=== PATIENT | male | born 1930 | race Caucasian/White ===

== ENCOUNTER 2018-04-02 18:03 | Inpatient (IN) | payer MEDICARE, OTHER ==
[2018-04-02 19:07] VITALS: BMI 26.1
[2018-04-02] MEDS: Enoxaparin Sodium 80 MG/0.8 ML SYRINGE SC SCH (20:29)
[2018-04-02] MEDS: Metoprolol Tartrate 25 MG TAB PO SCH (20:29)
[2018-04-02] MEDS: Tamsulosin HCl 0.4 MG CAP PO SCH (20:30)
[2018-04-02] MEDS: HYDROcodone/Acetaminophen 10/325 mg Tablet PO PRN (20:30)
--- NOTE | 2018-04-02 21:30 | RAD ---
AP VIEW CHEST: 04/02/18 HISTORY: COPD, congestive heart failure. AP view chest is obtained on 04/02/18. Comparison made to previous exam from 10/21/16. AP view chest demonstrates cardiomegaly noted. Pulmonary vascular congestion seen. Sternotomy wires noted. There are surgical robert in the right mid lung. There is blunting of the costophrenic angles bilaterally, compatible with pleural scarring. Radiographic appearance of the chest is stable and unchanged. No acute abnormality seen. IMPRESSION: Cardiomegaly and bilateral lung parenchymal scar and pleural scarring seen. POS: [facility]
[2018-04-03] MEDS: PROVENTIL INHALER 6.7 G (200 INHALATIONS) INH SCH ×4 (00:17→18:24)
[2018-04-03] MEDS: tiZANidine HCl 4 MG TAB PO PRN (00:18)
[2018-04-03 05:16] LABS: #Lymphocytes 1.1 thou/uL (1.20-3.40); #Monocytes 0.6 thou/uL (0.11-0.59); #Neutrophils 6.3 thou/uL (1.40-6.50); %Basophils 0.5 % (0.0-1.0); %Eosinophils 0.2 % (0.0-10.0); %Lymphocytes 13.1 % (21.0-51.0); %Monocytes 7.6 % (0.0-10.0); %Neutrophils 78.7 % (42.0-75.0); Hemoglobin 8.5 g/dL (14.0-18.0); Mean Corpuscular HGB CONC 31.2 g/dL (32.0-36.0); Mean Corpuscular Hemoglobin 26.7 pg (27.0-31.0); Mean Corpuscular Volume 85.5 fL (78.0-98.0); Mean Platelet Volume 5.8 fL (7.4-10.4); Platelet Count 221 thou/uL (130-400); RBC Distribution Width 14.7 % (11.5-14.5); Red Blood Cell (RBC) Count 3.19 mill/uL (4.70-6.10)
[2018-04-03 05:34] LABS: ALT (SGPT) 23 U/L (8-55); AST (SGOT) 30 U/L (5-34); Albumin 3.1 g/dL (3.4-4.8); Alkaline Phosphatase 227 U/L (40-150); Anion Gap 12 mmol/L (10-20); BUN (Urea Nitrogen) 39 mg/dL (8.4-25.7); Bilirubin, Total 0.9 mg/dL (0.2-1.2); Calc. Creatinine Clearance 66 mL/min (70-130); Calcium 9.7 mg/dL (7.8-10.44); Carbon Dioxide 26 mmol/L (23-31); Chloride 106 mmol/L (98-107); Estimated GFR-MDRD 72; Globulin 2.4 g/dL (2.4-3.5); Glucose 99 mg/dL (83-110); Potassium 4.4 mmol/L (3.5-5.1); Protein, Total 5.5 g/dL (5.8-8.1); Sodium 140 mmol/L (136-145)
[2018-04-03 05:35] LABS: Digoxin 0.24 ng/mL (0.8-2.0)
[2018-04-03] MEDS: Furosemide 20 MG TAB PO SCH (08:54)
[2018-04-03] MEDS: Digoxin 0.125 MG TAB PO SCH (08:54)
[2018-04-03] MEDS: Metoprolol Tartrate 25 MG TAB PO SCH ×2 (08:54→20:11)
[2018-04-03] MEDS: Enoxaparin Sodium 80 MG/0.8 ML SYRINGE SC SCH ×2 (08:54→20:10)
[2018-04-03] MEDS: Multivitamin W/ Minerals 1 TAB PO SCH (08:55)
[2018-04-03] MEDS: Saccharomyces boulardii 250 MG CAP PO SCH (08:55)
[2018-04-03] MEDS: HYDROcodone/Acetaminophen 10/325 mg Tablet PO PRN ×2 (08:56→20:11)
[2018-04-03] MEDS ORDERED: Enoxaparin Sodium 40 MG/0.4 ML SYRINGE SC SCH (09:00)
[2018-04-03] MEDS: Tamsulosin HCl 0.4 MG CAP PO SCH (20:11)
[2018-04-04] MEDS: PROVENTIL INHALER 6.7 G (200 INHALATIONS) INH SCH ×5 (05:37→22:55)
[2018-04-04] MEDS: Digoxin 0.125 MG TAB PO SCH (08:11)
[2018-04-04] MEDS: Enoxaparin Sodium 80 MG/0.8 ML SYRINGE SC SCH ×2 (08:12→20:49)
[2018-04-04] MEDS: Furosemide 20 MG TAB PO SCH (08:13)
[2018-04-04] MEDS: Metoprolol Tartrate 25 MG TAB PO SCH (08:13)
[2018-04-04] MEDS: Multivitamin W/ Minerals 1 TAB PO SCH (08:13)
[2018-04-04] MEDS: Saccharomyces boulardii 250 MG CAP PO SCH (08:14)
[2018-04-04] MEDS: HYDROcodone/Acetaminophen 10/325 mg Tablet PO PRN (08:15)
[2018-04-04] MEDS: tiZANidine HCl 4 MG TAB PO PRN (15:17)
[2018-04-04] MEDS: Tamsulosin HCl 0.4 MG CAP PO SCH (20:49)
[2018-04-05] MEDS: tiZANidine HCl 4 MG TAB PO PRN ×2 (02:02→23:21)
[2018-04-05] MEDS: PROVENTIL INHALER 6.7 G (200 INHALATIONS) INH SCH ×4 (05:53→22:59)
[2018-04-05] MEDS: Furosemide 20 MG TAB PO SCH (08:44)
[2018-04-05] MEDS: Enoxaparin Sodium 80 MG/0.8 ML SYRINGE SC SCH (08:44)
[2018-04-05] MEDS: Multivitamin W/ Minerals 1 TAB PO SCH (08:44)
[2018-04-05] MEDS: Saccharomyces boulardii 250 MG CAP PO SCH (08:44)
[2018-04-05] MEDS: Digoxin 0.125 MG TAB PO SCH (08:44)
[2018-04-05] MEDS: HYDROcodone/Acetaminophen 10/325 mg Tablet PO PRN ×2 (08:45→19:53)
[2018-04-05] MEDS: Metoprolol Tartrate 25 MG TAB PO SCH ×2 (08:45→19:54)
--- NOTE | 2018-04-05 18:47 | HP ---
HISTORY OF PRESENT ILLNESS: The patient is a very pleasant 87-year-old white male with a history of severe COPD and hypoxic respiratory failure, who has undergone a right total hip replacement and revision of previous right total hip with complications postoperatively with hypoxic respiratory failure, requiring intubation for several days. He, however, has improved to the point that he is able to be admitted to the [facility] for continued monitoring of his respiratory status, oxygen therapy, and physical therapy. He is denying any cough, fever, chills, or chest pain. He is denying any nausea, vomiting, or shortness of breath. He does have a long history of atrial fibrillation and is on chronic rate control, and no anticoagulation. He appears to be stabilized on this medication. He also has a history of coronary artery disease status post coronary artery bypass graft, but is having no chest pain or shortness of breath. PAST MEDICAL HISTORY: Remarkable for; 1. Hypertension. 2. Atrial fib. 3. Seizure disorder. 4. Essential tremor. 5. Coronary artery disease. 6. COPD. 7. Chronic hypoxic respiratory failure. 8. Dyslipidemia. PAST SURGICAL HISTORY: Positive for; 1. Coronary artery bypass graft. 2. Tonsillectomy. 3. Knee surgery. 4. Hand surgery. 5. Multiple right hip surgeries. 6. Left lower lobectomy. SOCIAL HISTORY: Distant history of smoking. He lives at home. MEDICATIONS: At this time, on admission, include; 1. Digoxin 0.125 daily. 2. Lovenox 40 mg subcutaneous daily. 3. Hydrocodone 10/325 every 4 as needed. 4. Tizanidine 4 mg every 8 hours as needed. 5. Metoprolol 12.5 mg twice daily. 6. Tamsulosin 0.4 mg nightly. 7. Protonix 40 daily. 8. Furosemide 20 mg daily. 9. Florastor 250 daily. 10. MiraLAX 17 g daily. 11. Albuterol sulfate two puffs every 6 hours as needed. ALLERGIES: HE HAS HISTORY OF ALLERGIES TO CLINDAMYCIN, PENICILLIN, MEROPENEM, AND MORPHINE. REVIEW OF SYSTEMS: HEENT: Denies any headaches, dizziness, change in vision or hearing, hoarseness, or dysphagia. PULMONARY: Denies cough, sputum production, pneumonia, asthma, or tuberculosis. CARDIOVASCULAR: Has a history of chronic atrial fibrillation, but no palpitations and has had no history of CVA or TIA. He is not on anticoagulation secondary to a history of recurrent hemothorax. GASTROINTESTINAL: He denies nausea, vomiting, diarrhea, constipation abdominal pain. GENITOURINARY: Denies dysuria, hematuria, or nocturia. Does have some decreased stream and has history of benign prostatic hypertrophy. NEUROLOGIC: He has a history of essential tremor, controlled with metoprolol. PHYSICAL EXAMINATION: GENERAL: The patient is an elderly white male, lying in bed, in no acute distress, on oxygen. Oriented x3 and cooperative. VITAL SIGNS: Show him to have a blood pressure of 125/74, temperature 97.5, pulse 105, respirations 22, and O2 saturations 92% on room air. HEENT: Pupils are equal, round, and reactive to light and accommodation. Sclerae anicteric. Conjunctivae pale. Oral mucous membranes well hydrated. NECK: Supple. There are no nodes or masses. JVP is not elevated. CARDIAC: Shows an irregularly irregular rhythm. ABDOMEN: Soft and nontender with no masses or organomegaly. SKIN/EXTREMITIES: Healing incision over the right lateral hip. NEUROLOGIC: Shows no focal findings. ASSESSMENT: 1. Stable status post revision of right total hip. 2. Stable chronic atrial fibrillation, on rate control with digoxin, but no anticoagulation secondary to recurrent hemothorax. 3. Hypertension, controlled to goal with metoprolol. 4. Chronic obstructive pulmonary disease, severe with chronic hypoxia, requiring home O2 and bronchodilators. Appears to be stable, but with dyspnea on exertion therapy. PLAN: 1. Continue PT/OT. 2. Continue oxygen supplementation as needed. 3. Continue digoxin and metoprolol, but only low dose of Lovenox. Prophylaxis, he is unable to tolerate full-dose anticoagulation. 4. Benign prostatic hypertrophy, stable on tamsulosin. Job ID: [id number]
--- NOTE | 2018-04-05 18:49 | PRG ---
DATE OF SERVICE: 04/03/2018 SUBJECTIVE: The patient feels well. Still having some pain in his legs, but is having no shortness of breath or chest pain at rest, having no nausea or vomiting. He is eating well. OBJECTIVE: VITAL SIGNS: Show his blood pressure is 118/59, temperature 98, pulse 86, respirations 18, and O2 sats 94% on 2 L. LUNGS: Show decreased breath sounds. No rales or rhonchi. CARDIAC: Showed irregular rhythm. No gallops or murmurs. ABDOMEN: Soft and nontender with no masses or organomegaly. SKIN/EXTREMITIES: Displayed no edema, clubbing, or cyanosis. Has a healing right lateral hip incision. ASSESSMENT: 1. Stable atrial fibrillation with rate controlled, but no anticoagulation, secondary to previous intrathoracic bleed. 2. Revision of right hip replacement, healing well. 3. Chronic obstructive pulmonary disease with recent hypoxic respiratory failure, requiring intubation, stable on oxygen supplementation and handheld nebulizers. PLAN: 1. Continue PT and OT. Continue oxygen and monitor saturations with therapy. 2. Continue pain relief as needed. 3. Continue rate controlled with digoxin, but no anticoagulation other than prophylactic. 4. Continue metoprolol for essential tremor. Job ID: [id number]
--- NOTE | 2018-04-05 19:01 | PRG ---
DATE OF SERVICE: 04/05/2018 SUBJECTIVE: The patient is feeling better with decreased pain, cooperating with therapy, was having problems with hypoxemia with therapy, but not at rest and has dyspnea on exertion, but he states that he has been like this previously. OBJECTIVE: Shows, LUNGS: Show decreased breath sounds. No rales or rhonchi. CARDIAC: Showed irregular rhythm. ABDOMEN: Soft and nontender with no masses or organomegaly. SKIN/EXTREMITIES: Displayed healing right lateral hip incision. ASSESSMENT: 1. Healing revision of right hip surgery. 2. Stable chronic obstructive pulmonary disease with hypoxia. 3. Chronic atrial fibrillation with rate controlled with no anticoagulation other than prophylactic, secondary to previous bleeding. 4. Benign prostatic hypertrophy, on tamsulosin. 5. Essential tremor, on metoprolol. PLAN: Continue PT and OT. Continue to monitor oxygen saturation with therapy. Continue bronchodilators. Continue rate controlled with only prophylactic anticoagulation of atrial fibrillation. Job ID: [id number]
--- NOTE | 2018-04-05 19:13 | PRG ---
DATE OF SERVICE: 04/05/2018 SUBJECTIVE: The patient feels well at rest, but has dyspnea on exertion, is having decreasing pain. Good appetite and sleeping well. OBJECTIVE: VITAL SIGNS: Temperature 97.3, pulse 64, respirations 18, O2 saturations 94% on 1.5 L, blood pressure 117/56. LUNGS: Show decreased breath sounds. No rales or rhonchi. CARDIAC: Showed irregular rhythm. No gallops or murmurs. ABDOMEN: Soft and nontender with no masses or organomegaly. Right lateral hip incision healing well. ASSESSMENT: 1. Resolving revision right total hip. 2. Stable atrial fibrillation with rate controlled with only prophylactic anticoagulation. 3. Significant chronic obstructive pulmonary disease with chronic hypoxia, on supplemental oxygen, but only on albuterol and we will start on handheld nebulizers with DuoNebs q.4 hours as well as prednisone orally to see if we can improve with dyspnea. PLAN: 1. Prednisone 40 mg daily. 2. Handheld nebulizer with DuoNebs q.i.d. 3. Continue metoprolol 12.5 twice daily. 4. Continue supplemental oxygen. 5. Continue only low-dose Lovenox 30 mg once daily. Job ID: [id number]
[2018-04-05] MEDS: Tamsulosin HCl 0.4 MG CAP PO SCH (19:55)
[2018-04-05] MEDS ORDERED: Enoxaparin Sodium 30 MG/0.3 ML SYRINGE SC SCH (21:00)
[2018-04-06] MEDS: PROVENTIL INHALER 6.7 G (200 INHALATIONS) INH SCH ×4 (05:56→22:56)
[2018-04-06] MEDS: Enoxaparin Sodium 30 MG/0.3 ML SYRINGE SC SCH (09:20)
[2018-04-06] MEDS: Metoprolol Tartrate 25 MG TAB PO SCH ×2 (09:21→20:35)
[2018-04-06] MEDS: predniSONE 20 MG TAB PO SCH (09:21)
[2018-04-06] MEDS: Saccharomyces boulardii 250 MG CAP PO SCH (09:21)
[2018-04-06] MEDS: Digoxin 0.125 MG TAB PO SCH (09:21)
[2018-04-06] MEDS: Multivitamin W/ Minerals 1 TAB PO SCH (09:21)
[2018-04-06] MEDS: Furosemide 20 MG TAB PO SCH (09:22)
--- NOTE | 2018-04-06 09:33 | RAD ---
CHEST 1 VIEW: HISTORY: Dyspnea. COPD. COMPARISON: 05/11/2017. FINDINGS: Cardiac silhouette is magnified by projection. Pulmonary vasculature is now engorged with widespread reticulonodular interstitial prominence. Mediastinum midline with postoperative changes and aortic calcification. Blunting of the left lateral costophrenic angle. No evidence of pneumothorax. Left lung apex obscured by the patient's head. IMPRESSION: 1. Pulmonary vascular congestion with a small amount of left pleural fluid. 2. Atherosclerosis. POS: [facility]
[2018-04-06] MEDS: Tamsulosin HCl 0.4 MG CAP PO SCH (20:35)
[2018-04-06] MEDS: tiZANidine HCl 4 MG TAB PO PRN (21:21)
[2018-04-06] MEDS: HYDROcodone/Acetaminophen 10/325 mg Tablet PO PRN (22:59)
[2018-04-07] MEDS: PROVENTIL INHALER 6.7 G (200 INHALATIONS) INH SCH ×4 (06:12→23:44)
[2018-04-07] MEDS: predniSONE 20 MG TAB PO SCH (08:08)
[2018-04-07] MEDS: Digoxin 0.125 MG TAB PO SCH (09:08)
[2018-04-07] MEDS: Metoprolol Tartrate 25 MG TAB PO SCH ×2 (09:08→20:23)
[2018-04-07] MEDS: Saccharomyces boulardii 250 MG CAP PO SCH (09:08)
[2018-04-07] MEDS: Furosemide 40 MG TAB PO SCH (09:09)
[2018-04-07] MEDS: Multivitamin W/ Minerals 1 TAB PO SCH (09:09)
[2018-04-07] MEDS: Enoxaparin Sodium 30 MG/0.3 ML SYRINGE SC SCH (09:09)
[2018-04-07] MEDS: tiZANidine HCl 4 MG TAB PO PRN (17:14)
[2018-04-07] MEDS: HYDROcodone/Acetaminophen 10/325 mg Tablet PO PRN (20:22)
[2018-04-07] MEDS: Tamsulosin HCl 0.4 MG CAP PO SCH (20:23)
[2018-04-08] MEDS: PROVENTIL INHALER 6.7 G (200 INHALATIONS) INH SCH ×4 (06:15→23:47)
[2018-04-08] MEDS: Digoxin 0.125 MG TAB PO SCH (08:19)
[2018-04-08] MEDS: predniSONE 20 MG TAB PO SCH (08:19)
[2018-04-08] MEDS: Enoxaparin Sodium 30 MG/0.3 ML SYRINGE SC SCH (08:20)
[2018-04-08] MEDS: Furosemide 40 MG TAB PO SCH (08:21)
[2018-04-08] MEDS: Metoprolol Tartrate 25 MG TAB PO SCH ×2 (08:21→20:09)
[2018-04-08] MEDS: Multivitamin W/ Minerals 1 TAB PO SCH (08:22)
[2018-04-08] MEDS: Saccharomyces boulardii 250 MG CAP PO SCH (08:23)
[2018-04-08] MEDS: HYDROcodone/Acetaminophen 10/325 mg Tablet PO PRN (08:24)
[2018-04-08] MEDS ORDERED: Nystatin Powder 15 GM BOT TOP PRN (17:26)
--- NOTE | 2018-04-08 17:53 | PRG ---
DATE OF SERVICE: 04/07/2018 SUBJECTIVE: The patient feels better with decreased dyspnea. No chest pain, shortness of breath, or palpitations. Having decreased hip pain. OBJECTIVE: VITAL SIGNS: Temperature is 97.5, pulse 76, respirations 20, O2 sats 95% on 2 L, blood pressure 104/60. LUNGS: Show decreased breath sounds at bases, but no rales or rhonchi. CARDIAC: Shows irregularly irregular rhythm. SKIN AND EXTREMITIES: Show no edema, clubbing, or cyanosis. Healing right lateral hip incision. Also, show increasing irritation of perineal area. ASSESSMENT: 1. Resolving right total hip. 2. Stable chronic obstructive pulmonary disease. 3. Stable atrial fibrillation with mild decompensated congestive heart failure, improved with furosemide. 4. Perineal irritation and possible tinea cruris. PLAN: 1. Nystatin powder b.i.d. 2. Continue furosemide and check BNP and BMP in several days. 3. Continue handheld nebulizers with DuoNeb. 4. Continue PT and OT. Job ID: [id number]
--- NOTE | 2018-04-08 17:58 | PRG ---
DATE OF SERVICE: 04/06/2018 SUBJECTIVE: The patient feels well. No complaints. He is having some increased hypoxia. Denying shortness of breath. Having decreased pain in his hip. OBJECTIVE: Chest x-ray shows some mild pulmonary congestion increase. VITAL SIGNS: Temperature is 98, pulse 83, respirations 20, O2 sats 98% on room air, blood pressure 155/78. LUNGS: Clear. Decreased breath sounds. CARDIAC: Showed regular rhythm. No gallops or murmurs. ABDOMEN: Soft and nontender. No masses or organomegaly. SKIN AND EXTREMITIES: Show a healing incision of the right hip. ASSESSMENT: 1. Stable atrial fibrillation, rate controlled, only prophylactic anticoagulation. 2. Resolving revision, right total hip. 3. Stable chronic obstructive pulmonary disease with chronic hypoxia on albuterol and handheld nebulizers. 4. Possible mild increased pulmonary congestion. PLAN: Continue prednisone 40 daily, handheld nebulizer, DuoNeb q.i.d., metoprolol 12.5 twice daily. Start on furosemide 40 mg daily. Job ID: [id number]
[2018-04-08 18:40] LABS: ALT (SGPT) 27 U/L (8-55); AST (SGOT) 33 U/L (5-34); Albumin 3.7 g/dL (3.4-4.8); Alkaline Phosphatase 335 U/L (40-150); Anion Gap 17 mmol/L (10-20); BUN (Urea Nitrogen) 40 mg/dL (8.4-25.7); Bilirubin, Total 1.1 mg/dL (0.2-1.2); Calc. Creatinine Clearance 58 mL/min (70-130); Calcium 9.8 mg/dL (7.8-10.44); Carbon Dioxide 21 mmol/L (23-31); Chloride 102 mmol/L (98-107); Estimated GFR-MDRD 63; Globulin 2.9 g/dL (2.4-3.5); Glucose 165 mg/dL (83-110); Potassium 4.4 mmol/L (3.5-5.1); Protein, Total 6.6 g/dL (5.8-8.1); Sodium 136 mmol/L (136-145)
[2018-04-08] MEDS: Tamsulosin HCl 0.4 MG CAP PO SCH (20:08)
[2018-04-08] MEDS: tiZANidine HCl 4 MG TAB PO PRN (20:10)
[2018-04-09] MEDS: PROVENTIL INHALER 6.7 G (200 INHALATIONS) INH SCH ×4 (05:19→23:02)
[2018-04-09] MEDS: tiZANidine HCl 4 MG TAB PO PRN ×2 (05:32→19:49)
[2018-04-09] MEDS: predniSONE 20 MG TAB PO SCH (08:21)
[2018-04-09] MEDS: Digoxin 0.125 MG TAB PO SCH (08:21)
[2018-04-09] MEDS: Enoxaparin Sodium 30 MG/0.3 ML SYRINGE SC SCH (08:22)
[2018-04-09] MEDS: Furosemide 40 MG TAB PO SCH (08:22)
[2018-04-09] MEDS: Metoprolol Tartrate 25 MG TAB PO SCH ×2 (08:22→21:07)
[2018-04-09] MEDS: Saccharomyces boulardii 250 MG CAP PO SCH (08:23)
[2018-04-09] MEDS: HYDROcodone/Acetaminophen 10/325 mg Tablet PO PRN (08:23)
[2018-04-09] MEDS: Multivitamin W/ Minerals 1 TAB PO SCH (08:23)
--- NOTE | 2018-04-09 18:07 | PRG ---
DATE OF SERVICE: 04/08/2018 SUBJECTIVE: The patient feels well, tolerating therapy with no shortness of breath or chest pain. LABORATORY DATA: Show, however, BNP is elevated to 716. Sodium is 136, potassium 4.4, chloride 102, bicarb 21, BUN is 40, creatinine is 1.11. AST 33, ALT 27. OBJECTIVE: VITAL SIGNS: Show blood pressure of 137/64, temperature is 97, pulse 87, respirations 18, O2 saturations 96% on 1 L. LUNGS: Show decreased breath sounds at bases, but with no crackles or rales. CARDIAC: Showed regular rhythm. ABDOMEN: Soft and nontender. EXTREMITIES: Right lateral hip incision is healing well. SKIN: Perineal rash is persistent. ASSESSMENT AND PLAN: Continue nystatin. Continue furosemide and repeat chest x-ray, but also repeat BMP as I concerned about increasing BUN. Continue handheld nebulizers. Continue PT and OT. Job ID: [id number]
[2018-04-09] MEDS: Tamsulosin HCl 0.4 MG CAP PO SCH (21:06)
[2018-04-10] MEDS: PROVENTIL INHALER 6.7 G (200 INHALATIONS) INH SCH ×3 (05:38→18:03)
[2018-04-10 06:08] LABS: Anion Gap 18 mmol/L (10-20); BUN (Urea Nitrogen) 43 mg/dL (8.4-25.7); Calc. Creatinine Clearance 63 mL/min (70-130); Calcium 9.6 mg/dL (7.8-10.44); Carbon Dioxide 19 mmol/L (23-31); Chloride 103 mmol/L (98-107); Estimated GFR-MDRD 69; Glucose 93 mg/dL (83-110); Potassium 4.1 mmol/L (3.5-5.1); Sodium 136 mmol/L (136-145)
--- NOTE | 2018-04-10 08:33 | RAD ---
CHEST ONE VIEW: History: Congestive heart failure. Shortness of breath. Comparison: 04-06-18 FINDINGS: There are sternotomy wires. Heart size is upper normal. Pulmonary vessels are slightly prominent. Pat phyllis interstitial opacities with focal alveolar infiltrates, unchanged. Small left sided pleural effus ion. Stable suture chain projecting over the right mid lung. No pneumothorax or acute osseous abnorma lities. IMPRESSION: No significant interval change. POS: [facility]
[2018-04-10] MEDS: Enoxaparin Sodium 30 MG/0.3 ML SYRINGE SC SCH (08:55)
[2018-04-10] MEDS: Saccharomyces boulardii 250 MG CAP PO SCH (08:56)
[2018-04-10] MEDS: Multivitamin W/ Minerals 1 TAB PO SCH (08:56)
[2018-04-10] MEDS: predniSONE 20 MG TAB PO SCH (08:56)
[2018-04-10] MEDS: Digoxin 0.125 MG TAB PO SCH (08:57)
[2018-04-10] MEDS: Furosemide 40 MG TAB PO SCH (08:57)
[2018-04-10] MEDS: Metoprolol Tartrate 25 MG TAB PO SCH ×2 (08:58→20:10)
[2018-04-10] MEDS: HYDROcodone/Acetaminophen 10/325 mg Tablet PO PRN ×2 (09:03→20:12)
[2018-04-10] MEDS: tiZANidine HCl 4 MG TAB PO PRN (11:20)
[2018-04-10] MEDS ORDERED: Budesonide 0.5 MG/2 ML NEB INH SCH (18:30)
[2018-04-10] MEDS ORDERED: Arformoterol 15 MCG/2 ML NEB NEB SCH (18:30)
[2018-04-10] MEDS: Budesonide 0.5 MG/2 ML NEB INH SCH (20:10)
[2018-04-10] MEDS: Arformoterol 15 MCG/2 ML NEB NEB SCH (20:10)
[2018-04-10] MEDS: Tamsulosin HCl 0.4 MG CAP PO SCH (20:11)
[2018-04-11] MEDS: HYDROcodone/Acetaminophen 10/325 mg Tablet PO PRN ×2 (08:34→20:21)
[2018-04-11] MEDS: predniSONE 20 MG TAB PO SCH (08:37)
[2018-04-11] MEDS: Saccharomyces boulardii 250 MG CAP PO SCH (08:37)
[2018-04-11] MEDS: Multivitamin W/ Minerals 1 TAB PO SCH (08:37)
[2018-04-11] MEDS: Metoprolol Tartrate 25 MG TAB PO SCH ×2 (08:37→20:21)
[2018-04-11] MEDS: Digoxin 0.125 MG TAB PO SCH (08:37)
[2018-04-11] MEDS: Furosemide 40 MG TAB PO SCH (08:38)
[2018-04-11] MEDS: Arformoterol 15 MCG/2 ML NEB NEB SCH ×2 (08:38→20:20)
[2018-04-11] MEDS: Enoxaparin Sodium 30 MG/0.3 ML SYRINGE SC SCH (08:38)
[2018-04-11] MEDS: Budesonide 0.5 MG/2 ML NEB INH SCH ×2 (08:39→20:21)
--- NOTE | 2018-04-11 17:08 | PRG ---
DATE OF SERVICE: 04/10/2018 SUBJECTIVE: The patient states he is breathing much better, having only complaints of recurrent tremors and not sleeping because of the tremors. Ipava this is possibly due to tizanidine or albuterol. OBJECTIVE: VITAL SIGNS: Blood pressure is 117/60, temperature is 98, pulse 91, respirations 22, and O2 sats 98% on 2 L. LUNGS: Clear. CARDIAC: Showed irregular rhythm. ABDOMEN: Soft and nontender. SKIN/EXTREMITIES: Showed no edema. Healing incision right hip. Physical Therapy states that the patient is walking 475 feet, standby assistance with a rolling walker. ASSESSMENT: 1. Resolving right total hip revision. 2. Stable congestive heart failure, on diuretics, decreasing pulmonary congestion. 3. Chronic obstructive pulmonary disease, stable, but with tremors, possibly from DuoNebs. 4. Recurrent muscle spasms, possibly being treated with tizanidine with side effects. PLAN: Discontinue tizanidine. Discontinue DuoNeb. Start on albuterol, Pulmicort twice daily as he was taking at home. Continue furosemide 40 mg daily. Monitor vital signs and renal function closely. Job ID: [id number]
--- NOTE | 2018-04-11 17:32 | PRG ---
DATE OF SERVICE: 04/11/2018 SUBJECTIVE: The patient feels well with no further spasms. He still does not sleep through the night, but does not want any sleeping pills. He is breathing well. No shortness of breath. He states he thinks he can be off his oxygen. He is asking when he can be discharged home and is asking about his followup with his orthopedic surgeon. OBJECTIVE: VITAL SIGNS: Show his blood pressure is 156/67, temperature is 98, pulse 68, respirations 20, and O2 saturations 99% on 1 L. LUNGS: Clear. CARDIAC: Shows regular rhythm. ABDOMEN: Soft and nontender. EXTREMITIES: Show right lateral incision healing well. ASSESSMENT: 1. Resolving right total hip. 2. Stable atrial fibrillation. 3. Compensated congestive heart failure. 4. Chronic obstructive pulmonary disease, stable on Brovana and Pulmicort. 5. Muscle spasm and tremors, most likely due to medication, resolved with discontinuation of tizanidine and DuoNeb. 6. Insomnia, possibly due to steroids. PLAN: Decrease prednisone to 20 mg daily. Discontinue oxygen. Obtain a followup appointment with Dr. Alberto and discussed discharge planning with Physical Therapy. Job ID: [id number]
[2018-04-11] MEDS: Tamsulosin HCl 0.4 MG CAP PO SCH (20:21)
[2018-04-12 05:17] LABS: #Lymphocytes 1.6 thou/uL (1.20-3.40); #Neutrophils 9.6 thou/uL (1.40-6.50); %Basophils 0.4 % (0.0-1.0); %Eosinophils 0.1 % (0.0-10.0); %Lymphocytes 12.9 % (21.0-51.0); %Neutrophils 78.5 % (42.0-75.0); Hemoglobin 9.4 g/dL (14.0-18.0); Mean Corpuscular HGB CONC 31.7 g/dL (32.0-36.0); Mean Corpuscular Hemoglobin 27.2 pg (27.0-31.0); Mean Corpuscular Volume 85.9 fL (78.0-98.0); Mean Platelet Volume 5.6 fL (7.4-10.4); Platelet Count 331 thou/uL (130-400); RBC Distribution Width 16.1 % (11.5-14.5); Red Blood Cell (RBC) Count 3.44 mill/uL (4.70-6.10); White Blood Cell (WBC) Count 12.3 thou/uL (4.8-10.8)
[2018-04-12 05:35] LABS: ALT (SGPT) 26 U/L (8-55); AST (SGOT) 26 U/L (5-34); Albumin 3.3 g/dL (3.4-4.8); Alkaline Phosphatase 220 U/L (40-150); Anion Gap 14 mmol/L (10-20); BUN (Urea Nitrogen) 45 mg/dL (8.4-25.7); Bilirubin, Total 0.7 mg/dL (0.2-1.2); Calc. Creatinine Clearance 55 mL/min (70-130); Calcium 9.2 mg/dL (7.8-10.44); Carbon Dioxide 25 mmol/L (23-31); Chloride 103 mmol/L (98-107); Estimated GFR-MDRD 59; Globulin 2.5 g/dL (2.4-3.5); Glucose 123 mg/dL (83-110); Potassium 3.9 mmol/L (3.5-5.1); Protein, Total 5.8 g/dL (5.8-8.1); Sodium 138 mmol/L (136-145)
[2018-04-12] MEDS ORDERED: predniSONE 20 MG TAB PO SCH (08:00)
[2018-04-12] MEDS: Digoxin 0.125 MG TAB PO SCH (09:04)
[2018-04-12] MEDS: Saccharomyces boulardii 250 MG CAP PO SCH (09:04)
[2018-04-12] MEDS: Furosemide 40 MG TAB PO SCH (09:04)
[2018-04-12] MEDS: Multivitamin W/ Minerals 1 TAB PO SCH (09:04)
[2018-04-12] MEDS: Enoxaparin Sodium 30 MG/0.3 ML SYRINGE SC SCH (09:05)
[2018-04-12] MEDS: Arformoterol 15 MCG/2 ML NEB NEB SCH (09:05)
[2018-04-12] MEDS: Budesonide 0.5 MG/2 ML NEB INH SCH (09:05)
[2018-04-12] MEDS: Metoprolol Tartrate 25 MG TAB PO SCH (09:05)
[2018-04-12] MEDS: HYDROcodone/Acetaminophen 10/325 mg Tablet PO PRN ×2 (10:04→16:46)
[2018-04-12 16:51] VITALS: BP 132/61; TEMP 97.7
--- NOTE | 2018-04-15 08:31 | PRG ---
DATE OF SERVICE: 04/09/2018 SUBJECTIVE: The patient is feeling better with decreasing dyspnea and shortness of breath, cooperating well with therapy. Eating better. OBJECTIVE: VITAL SIGNS: Show temperature 97.5, pulse 89, respirations 18, O2 sats 97% on 1-1/2 L, blood pressure 118/58. LUNGS: Clear. CARDIAC: Showed regular rhythm. ABDOMEN: Soft and nontender. ASSESSMENT: 1. Resolving right total hip replacement. 2. Stable congestive heart failure, on increased furosemide. 3. Resolving perineal Monilia tinea cruris. 4. Stable chronic obstructive pulmonary disease. 5. Stable atrial fibrillation. PLAN: BNP and BMP in the a.m. Chest x-ray in the a.m. Continue low-dose Lovenox. Continue furosemide 40 daily. Continue metoprolol 12.5 twice daily. Continue prednisone 40 daily and decrease dose in the next week. Job ID: [id number]
== END 2018-04-12 17:12 | disposition home or self-care (01) | DRG 560 ==
LOC: NAV ACUTE 18:03
PROVIDERS: ADMIT Internal Medicine; ATTEND Internal Medicine
DX: Z47.1 Aftercare following joint replacement surgery (principal); J96.11 Chronic respiratory failure with hypoxia; Z96.641 Presence of right artificial hip joint; J44.9 Chronic obstructive pulmonary disease, unspecified; I25.10 Atherosclerotic heart disease of native coronary artery without angina pectoris; Z99.81 Dependence on supplemental oxygen; I48.2 Chronic atrial fibrillation; E78.5 Hyperlipidemia, unspecified; I11.0 Hypertensive heart disease with heart failure; I50.9 Heart failure, unspecified; B35.6 Tinea cruris; G40.909 Epilepsy, unspecified, not intractable, without status epilepticus; G25.0 Essential tremor; N40.0 Benign prostatic hyperplasia without lower urinary tract symptoms; Z95.1 Presence of aortocoronary bypass graft; Z90.2 Acquired absence of lung [part of]; Z87.891 Personal history of nicotine dependence; Z79.84 Long term (current) use of oral hypoglycemic drugs; Z88.1 Allergy status to other antibiotic agents; Z88.5 Allergy status to narcotic agent; Z88.0 Allergy status to penicillin
CPT/HCPCS: 36415; 71045; 71046; 80048; 80053; 80162; 83880; 85025; J1650; J7620; J7626